=== PATIENT | male | born 1955 | race Caucasian/White ===

== ENCOUNTER 2016-11-29 13:29 | Observation (INO) | payer MEDICARE ==
--- NOTE | ~2016-11-29 | HEMODYNAMI ---
PATIENT:LINETTE MONTANEZ MEDICAL RECORD: [id number] : 55 [id number] ADMISSION DATE: 11/29/16 Generatedon:11/30/201611:28 Patient name: LINETTE MONTANEZ Patient #: [id number] SSN: D OB: 1955 Date of study: 11/30/2016 Page: Of Hemodynamic Procedure Report Patient Data Patient Demographics Procedure consent was obtained First Name: LINETTE Gender: Male Last Name: TARIK : 1955 [facility] Initial: ANTONIO Age: 61 year(s) Patient #: [id number] Race: Unknown Additional ID: [id number] Contact details [address]: [address] [place] [address] State: [place] City: [place] Zip code: [address] Past Medical History Allergies Allergen Reaction Date Comments Reported Aspirin 11/01/2015 Aspirin 11/30/2016 Admission Admission Data Admission Date: 11/29/2016 Admission Time: 16:45 Room #: D.2123 Weight (lbs.): 177.47 Weight (kg.): 80.5 Lab Results Lab Result Date: 11/30/2016 Lab Result Time: 0:00 Biochemistry Name Units Result Min Max BUN mg/dl 15 --(--*-)-- 7 18 Creatinine mg/dl 1 --(--*-)-- 0.6 1.3 CBC Name Units Result Min Max Hemoglobin g/dl 14.9 --(-*--)-- 13.5 17.5 Procedure Procedure Types Cath Procedure Diagnostic Procedure LHC LHC w/Coronaries Miscellaneous Procedures Moderate Sedation up to 30 minutes Procedure Description Procedure Date Procedure Date: 11/30/2016 Procedure Start Time: 11:12 Procedure End Time: 11:23 Procedure Staff Name Function Gilles Aldana MD Performing Physician Patricio Cobos RT Scrub Brittney Dobson RN Nurse Rony Jarrett RT Monitor Procedure Data Cath Procedure Fluoroscopy Diagnostic fluoroscopy Total fluoroscopy Time: 3.6 time: 3.6 min min Diagnostic fluoroscopy Total fluoroscopy dose: 644 dose: 644 mGy mGy Contrast Material Contrast Material Type Amount (ml) Isovue 300 70 Entry Location Entry Primary Successful Side Size Upsize Upsize Entry Closure Redd ccessful Closure Location (Fr) 1 (Fr) 2 (Fr) Remarks Device Remarks Radial Right 6 Fr Mechanical artery Short Compression Diagnostic catheters Device Type Used For End Catheter Placement Cordis RBL-A catheter (NO LV Angiography CHARGE) Terumo 5Fr [place] 110cm Left Coronary catheter Angiography Procedure Complications No complications Procedure Medications Medication Administration Route Dosage Oxygen NC 2 l/min Heparin Flush Bag added to field 2 bags (1000units/500ml NS) Lidocaine 2% added to field 20 Radial Cocktail added to field 1 syringe (Verapomil 2mg/Nitro 400mcg/Heparin 1500units) Versed I.V. 1 mg Fentanyl I.V. 50 mcg Versed I.V. 1 mg Fentanyl I.V. 50 mcg Radial Cocktail I.A. 1 syringe (Verapomil 2mg/Nitro 400mcg/Heparin 1500units) Hemodynamics Rest HGB: 14.9 (g/dl) Heart Rate: 55 (bpm) Pressure Samples Time Site Value (mmHg) Purpose Heart Use Rate(bpm) 11:15 LV 114/-1,12 EDP 66 Gradients Valve Time Site Site Mean SEP/DFP Peak To Heart Use 1 2 (mmHg) (sec/min) Peak Rate (mmHg) (bpm) Aortic 11:16 LV AO 90 Snapshots Pre Cath Intra NCS Post Cath Vital Signs Time Heart Resp SPO2 etCO2 [id number] NIBP (mmHg) Rhythm Pain Sedation Rate (ipm) (%) (mmHg) (mmHg) Status Level (bpm) 10:40:32 79 16 96 0 0 116/82(96) NSR 0 (11) 10(A) , No pain 10:44:38 56 15 96 0 0 134/81(104) SB 0 (11) 10(A) , No pain 10:48:52 59 15 95 0 0 119/74(91) SB 0 (11) 10(A) , No pain 10:53:02 55 16 96 0 0 114/74(91) SB 0 (11) 10(A) , No pain 10:57:14 51 16 95 0 0 119/63(82) SB 0 (11) 10(A) , No pain 11:01:26 55 16 95 0 0 104/70(81) SB 0 (11) 10(A) , No pain 11:05:32 57 16 95 0 0 109/66(82) SB 0 (11) 10(A) , No pain 11:09:41 55 16 95 0 0 110/62(83) SB 0 (11) 9(A) , No pain 11:14:38 58 16 95 0 0 104/58(75) SB 0 (11) 9(A) , No pain 11:18:46 61 16 95 0 0 103/63(83) SB 0 (11) 9(A) , No pain 11:22:52 56 16 96 0 0 107/65(83) SB 0 (11) 9(A) , No pain 11:25:07 55 16 95 0 0 91/62(76) SB 0 (11) 9(A) , No pain Medications Time Medication Route Dose Verified Delivered Reason Notes Effectiveness by by 10:48:35 Oxygen NC 2 l/min Gilles Brittney Per Jovan Dobson RN physician 10:48:54 Heparin Flush added 2 bags Gilles Gilles used for Bag to Jovan Aldana MD procedure (1000units/500ml field NS) 10:49:04 Lidocaine 2% added 20ml Gilles Gilles used for to vial Jovan Aldana MD procedure field 10:49:16 Radial Cocktail added 1 Gilles Gilles used for (Verapomil to syringe Jovan Aldana MD procedure 2mg/Nitro field 400mcg/Heparin 1500units) 11:06:59 Versed I.V. 1 mg Gilles Brittney for sedation Jovan Dobson RN 11:07:07 Fentanyl I.V. 50 mcg Gilles Brittney for sedation Jovan Dobson RN 11:09:11 Versed I.V. 1 mg Gilles Brittney for sedation Jovan Dobson RN 11:09:16 Fentanyl I.V. 50 mcg Gilles Brittney for sedation Jovan Dobson RN 11:14:08 Radial Cocktail I.A. 1 Gilles Gilles for (Verapomil syringe Jovan Aldana MD vasodilation 2mg/Nitro 400mcg/Heparin 1500units) Procedure Log Time Note 10:10:19 Patricio Cobos RT(R) sent for patient. Start room use. 10:20:52 Lab Result : BUN 15 mg/dl 10::52 Lab Result : Hemoglobin 14.9 g/dl 10::52 Lab Result : Creatinine 1 mg/dl 10:21:14 ACC Patient presents with Unstable Angina CCS Anginal Class 3--Marked limitation of physical activity, angina occurs with ordinary activity.. 10:21:16 Diagnostic Cath status Urgent 10::22 Time tracking: Regular hours 10::27 Plan of Care:Hemodynamics will remain stable., Cardiac rhythm will remain stable., Comfort level will be maintained., Respiratory function will remain adequate., Patient/ family verbilizes understanding of procedure., Procedure tolerated without complication., Recovers from procedure without complications.. 10:33:52 Patient received from PCU to CCL 1 Alert and oriented. Tansferred to table in Supine position. 10:33:55 Warm blankets applied, and franny hugger turned on for patient comfort. 10:33:55 Correct patient and procedure confirmed by team. 10:33:56 Signed procedure consent form obtained from patient. 10:33:57 ECG and BP/O2 sat monitors applied to patient. 10:39:28 Vital chart was started 10:43:24 Baseline sample Acquired. 10:43:27 Rhythm: sinus rhythm 10:43:28 Full Disclosure recording started 10:43:38 H&P Date Dictated: 11/29/2016 Within 30 days and on chart.. 10:43:39 Pre-procedure instructions explained to patient. 10:43:40 Pre-op teaching completed and patient verbalized understanding. 10:45:27 Family in patients room. 10:45:29 Patient NPO since Midnight. 10:45:36 Patient allergic to Aspirin 10:45:38 Is the patient allergic to Iodine/contrast media? No. 10:45:40 Is patient on blood thinner?No 10:45:54 Patient diabetic? No. 10:45:55 ----Pre-sedation anethsthesia assessment.---- 10:45:57 Previous problem with sedation/anesthesia? No ? 10:45:59 Snore? Yes 10:46:02 Sleep apnea? Yes 10:46:04 Deviated septum? No 10:46:06 Opens mouth fully? Yes 10:46:07 Sticks out tongue? Yes 10:46:13 Airway obstruction? Yes COPD 10:46:17 Dentures? No ? 10:46:20 Pre procedure: right dorsailis pedis pulse 1+ Palpable, but thready & weak; easily obliterated 10:46:22 Modified Michael's test Ulnar < 7 seconds 10:46:27 Patient pain scale 2/10 CP. 10:46:35 IV patent on arrival in left hand with 0.9% NaCl at 10ml/hr. 10:46:38 Lab results completed and on chart. 10:46:41 Right Radial & Right Groin area was prepped with chlora-prep and draped in sterile fashion 10:46:42 Alarms reviewed by R. N. 10:46:42 Sharps counted by scrub and verified by R.N. 10:46:57 Use device set Radial Dx 10:47:27 Acist Syringe opened to sterile field. 10:47:27 Medline Cath Pack opened to sterile field. 10:47:28 Bag Decanter opened to sterile field. 10:47:28 Terumo 6Fr Slender Glidesheath opened to sterile field. 10:47:29 St Myron 260cm J .035 wire opened to sterile field. 10:47:29 Acist Hand Control opened to sterile field. 10:47:30 Acist Manifold opened to sterile field. 10:47:30 Tegaderm 4 x 4 opened to sterile field. 10:47:30 MBrace Wrist Support opened to sterile field. 10:47:39 Cook 21G 4cm Radial Needle opened to sterile field. 10:48:35 Oxygen 2 l/min NC was administered by Brittney Dobson RN; Per physician; 10:48:54 Heparin Flush Bag (1000units/500ml NS) 2 bags added to field was administered by Gilles Aldana MD; used for procedure; 10:49:04 Lidocaine 2% 20ml vial added to field was administered by Gilles Aldana MD; used for procedure; 10:49:16 Radial Cocktail (Verapomil 2mg/Nitro 400mcg/Heparin 1500units) 1 syringe added to field was administered by Gilles Aldana MD; used for procedure; 10:57:48 Zero performed for pressure channel P1 10:57:51 Zero performed for pressure channel P1 10:57:54 Zero performed for pressure channel P1 11:00:06 Patient Weight : 177.47 kg 11:06:37 --------ALL STOP TIME OUT------ 11::38 Final Timeout: patient, procedure, and site verified with staff and physician. All members of the team are in agreement. 11:06:40 Right Radial & Right Groin site verified by team. 11:06:42 Physical assessment completed. ASA score P 2 - A patient with mild systemic disease as per Gilles Aldana MD. 11:06:46 Sedation plan: IV Moderate Sedation Versed, Fentanyl 11:06:59 Versed 1 mg I.V. was administered by Brittney Dobson RN; for sedation; 11::07 Fentanyl 50 mcg I.V. was administered by Brittney Dobson RN; for sedation; 11::11 Versed 1 mg I.V. was administered by Brittney Dobson RN; for sedation; 11::16 Fentanyl 50 mcg I.V. was administered by Brittney Dobson RN; for sedation; 11:11:15 Procedure started. 11:12:04 Local anesthetic to right radial artery with Lidocaine 2% by Gilles Aldana MD.INITIAL ACCESS ONLY 11:12:18 A 6 Fr Short sheath was inserted into the Right Radial artery 11:13:57 A TRAFFIQ RBL-A catheter (NO CHARGE) was advanced over the wire and used for LV Angiography. 11:14:02 LV angiography performed. 11:14:04 LV gram done using KAUR 11:14:05 LV hemodynamics recorded. 11:14:08 Radial Cocktail (Verapomil 2mg/Nitro 400mcg/Heparin 1500units) 1 syringe I.A. was administered by Gilles Aldana MD; for vasodilation; 11:14:14 Injector settings: Ml/sec: 7, Volume: 15, 11:15:38 EF : 60 % 11:17:17 RCA angiography performed. 11:19:35 Catheter removed. 11:19:46 A Terumo 5Fr [place] 110cm catheter was advanced over the wire and used for Left Coronary Angiography. 11:20:04 LCA angiography performed. 11:22:05 Catheter removed. 11:22:10 Terumo TR Band Standard opened to sterile field. 11:22:17 Contrast amount:Isovue 300 70ml. 11:22:23 Sheath removed intact; hemostasis achieved with Mechanical Compression to the Right Radial artery. 11:22:25 Procedure ended.(Physican Out) 11:22:35 Fluoroscopy time 03.60 minutes. 11:22:48 Flurop Dose total: 644 11:22:48 Fluoroscopy dose: 644 mGy 11:22:49 Sharps counted by scrub and verified by R.N. 11:22:51 TR band inflated with 10cc of air. 11:22:53 Insertion/operative site no bleeding no hematoma. 11:22:57 Post right radial artery:stable 11:23:01 Post procedure rhythm: sinus rhythm 11:23:03 Post procedure instruction explained to patient.Patient verbalizes understanding. 11:23:23 Procedure type changed to Cath procedure, Diagnostic procedure, LHC, LHC w/Coronaries, Miscellaneous Procedures, Moderate Sedation up to 30 minutes 11:23:27 Procedure and supply charges have been captured, reviewed, submitted and are correct. 11:23:30 Procedure Complication : No complications 11:23:32 Vital chart was stopped 11:23:33 See physician's report for complete and final results. 11:23:35 Report given to PCU. 11:23:43 Patient transfered to PCU with Bed. 11:23:45 Procedure ended. 11:23:45 Full Disclosure recording stopped 11:23:49 End room use (Document Last) Device Usage Item Name Manufacture Quantity Catalog Hospital Part Current Minimal Lot# / Number Charge Number Stock Stock Serial# Code Acist Acist 1 87428 [id number] [id number] 072735 20 Syringe Medical Systems Inc Medline Cardinal 1 [id number] 480646 75938 940826 5 Cath Pack Health Bag Microtek 1 2001S 563393 24312 102754 5 Decanter Medical Inc. Terumo 6Fr Terumo 1 [id number] 575618 023928 496274 [address] St Myron 1 557267 695044 405184 377501 30 260cm J .035 wire Acist Hand Acist 1 13173 536633 019326 276789 5 Control Medical Systems Inc Acist Acist 1 60159 495117 187485 622968 5 Manifold Medical Systems Inc Tegaderm 4 3M 1 1626W 100564 014814 160117 5 x 4 MBrace Advanced 1 140-0250-00 497127 32483 190369 5 Wrist Vascular Support Dynamics Cook 21G Cook Medical 1 [id number] 425783 288938 827368 5 4cm Radial Needle Cordis Cardinal 1 [id number] 165191 492878 5 RBL-A Health catheter (NO CHARGE) Terumo 5Fr Terumo 1 26-4125 067806 185550 843907 5 [place] 110cm catheter Terumo TR Terumo 1 [id number] 115270 467949 954117 40 Band Standard Signature Audit [place] Stage Time Signature Unsigned Intra-Procedure 11/30/2016 Rony Jarrett 11:28:20 AM RT(R) Signatures Monitor : Rony Jarrett RT Signature : Date : Time : [place] [id number] [place] [address]
[~2016-11-29 13:29] MED LIST: COMBIVENT INHALER INH; COUMADIN4 MG PO; DEPAKOTE500 MG PO; DILANTIN100 MG PO; FLOMAX0.4 MG PO; HYDROCODONE-APA1 TAB PO; IMODIUM A-D2 MG PO; IPRAT-ALBUT 0.5-3 ML UPD; LEVAQUIN750 MG PO; OMEPRAZOLE40 MG PO; PEPCID20 MG PO; SYNTHROID PO; SYNTHROID150 MCG PO; TOPAMAX100 MG PO
[2016-11-29 14:18] LABS: BASOPHILS 1.4 % (0.0-2.0); EOSINOPHILS 2.6 % (0-7); HEMATOCRIT 43.5 % (42.0-54.0); HEMOGLOBIN 14.9 g/dL (13.5-17.5); IMMATURE GRANULOCYTES 0.2 % (0-5); LYMPHOCYTES 29.2 % (15-50); MCH 33.5 pg (26.0-34.0); MCHC 34.3 g/dL (31.0-37.0); MCV 97.8 fL (80.0-100.0); MEAN PLATELET VOLUME 10.4 fL (7.4-10.4); NEUTROPHILS 59.6 % (40-80); PLATELET COUNT 102 10x3/uL (130-400); RBC 4.45 10x6/uL (4.20-6.10); RDW 14.3 % (11.5-14.5); WBC 4.3 10x3/uL (4.8-10.8)
[2016-11-29 14:44] LABS: ALBUMIN 3.6 g/dL (3.4-5.0); ALKALINE PHOSPHATASE 102 U/L (46-116); ALT (SGPT) 68 U/L (10-68); BILIRUBIN - TOTAL 0.58 mg/dL (0.2-1.3); CALC OSMOLALITY 281 mosm/kg (275-300); CALCIUM 8.8 mg/dL (8.5-10.1); CARBON DIOXIDE 28.9 mmol/L (21.0-32.0); CHLORIDE - SERUM 105 mmol/L (98-107); CREATININE - SERUM 1.1 mg/dL (0.6-1.3); GLUCOSE 131 mg/dL (74-106); POTASSIUM - SERUM 4.1 mmol/L (3.5-5.1); PROTEIN - SERUM 7.7 g/dL (6.4-8.2); SODIUM 140 mmol/L (136-145); UREA NITROGEN 15 mg/dL (7-18); eGFR NON AFRICAN AMERICAN 72 mL/min (90-120)
[2016-11-29 14:55] LABS: CHOL - HDL RATIO 5.2 ratio (2.3-4.9); CHOLESTEROL, TOTAL 213 mg/dL (0-200); CREATINE KINASE 240 UL (21-232); HDL CHOLESTEROL 41 mg/dL (32-96); LDL CHOLESTEROL 110 mg/dL (0-100); LDL-HDL RATIO 2.7 ratio (1.5-3.5); TRIGLYCERIDE 310 mg/dL (30-200)
[2016-11-29 14:56] LABS: TROPONIN-I < 0.017 ng/mL (0.000-0.060)
--- NOTE | 2016-11-29 17:20 | NUR ---
RECEIVED PT VIA W/C FROM ER IN STABLE CONDITION DENIES ANY PAIN AT THIS TIME TELEMETRY APPLIED SINUS LEYDA 59 RESP UNLABORED SKIN W/D COLOR WNL SALINE LOCK INTACT TO LAC WITHOUT REDNESS OR EDEMA OCCLUSIVE DRSG INTACT DR LOWE HERE TO SEE PT
[2016-11-29 17:33] VITALS: BP 123/78; BMI 31.6
[2016-11-29 18:16] LABS: CALC OSMOLALITY 280 mosm/kg (275-300); CALCIUM 9.1 mg/dL (8.5-10.1); CHLORIDE - SERUM 104 mmol/L (98-107); CREATINE KINASE 242 UL (21-232); GLUCOSE 116 mg/dL (74-106); SODIUM 140 mmol/L (136-145); UREA NITROGEN 15 mg/dL (7-18); eGFR NON AFRICAN AMERICAN 81 mL/min (90-120)
[2016-11-29 18:21] LABS: TROPONIN-I < 0.017 ng/mL (0.000-0.060)
[2016-11-29 20:00] VITALS: BP 109/73
--- NOTE | 2016-11-29 22:21 | NUR ---
INITAIL ROUNDS COMPETED AT 1914 HRS. PT DENIED AY DISCOMFORT PT HAD C/O CP 9/10 AT 1929 HRS. BP STABLE. NITRO 1/150 SL GIVEN. CP DOWN TO 2/10 WITHIN 5 MINUTES. ASSSESSMENT COMPLETED AT 1934 HRS. SR PER CM HR 62. VSS. O2 2LNC. LUNGS DIMINISHED IN BASES BILAT. ALERT AND ORIENTED TO PERSON, PLACE AND TIME. FORREST. NO CP WHEN ASSESSMENT COMPLETED. IV TO LAC INFILTRATED AT 2134 HRS. DC'D WITH CATHETER INTACT. NEW IV STARTED #20 TO L HADN WITH ATTEMPT X1. PT TOLERATED PROCEDURE WELL. PT CURRENTLY RESTING WITH EYES CLOSED. RESP EVEN AND REGULAR. SR UP X2, CALL LIGHT WITHIN REACH.
--- NOTE | 2016-11-29 23:12 | NUR ---
PT HAD C/O CPAT 2300 HRS 05/02. BP 110.75. NITRO 1/150 SL GIVEN. CP DOWN TO 2/10 WITHIN 5 MINUTES. POST NITRO BP 108/68. EKG DONE. WILL CONTINUE TO MONITOR.
--- NOTE | 2016-11-30 00:11 | NUR ---
PT RESTING WITH EYES CLOSED. RESP EVEN AND REGULAR. SR UP X2,CALL LIGHT WITHIN REACH.
[2016-11-30 01:51] LABS: CKMB 2.8 U/L (0.0-3.6); CREATINE KINASE 196 UL (21-232)
[2016-11-30 01:53] LABS: TROPONIN-I < 0.017 ng/mL (0.000-0.060)
[2016-11-30 02:00] VITALS: BP 103/56
--- NOTE | 2016-11-30 03:02 | NUR ---
PT RESTING WITH EYES CLOSED. RESP EVEN AND REGULAR. SR UP X2, CALL LIGHT WITHIN REACH.
[2016-11-30 04:00] VITALS: BP 115/58
--- NOTE | 2016-11-30 04:20 | NUR ---
PT RESTING WITH EYES CLOSED. RESP EVEN AAND REGULAR. SR UP X2, CALL LIGHT WITHIN REACH.
--- NOTE | 2016-11-30 06:12 | NUR ---
VSS THROUGHOUT NIGHT. SB PER CM. PT DENIES ANY DISCOMFORT AT THIS TIME. NEEDS MET; WILL CONTINUE TOMONITOR.
[2016-11-30 06:28] LABS: CKMB 2.5 U/L (0.0-3.6); CREATINE KINASE 179 UL (21-232); TROPONIN-I < 0.017 ng/mL (0.000-0.060)
--- NOTE | 2016-11-30 06:30 | NUR ---
PT HAS C/O CP 04/01. BP 119/80. NITRO 0.4MG SUBLINGUAL GIVEN.
--- NOTE | 2016-11-30 06:50 | NUR ---
PT STATES CP NOW 10/30. MINIMAL CHANGE IN BP. WILL CONTINUE TO MONITOR.
[2016-11-30 08:06] VITALS: BP 94/66
--- NOTE | 2016-11-30 09:59 | NUR ---
ALERT AND ORIENTED X4. RESTING IN BED. CONSENTS FOR STARS ANALYTICAL LEAD SIGNED ON CHART. SINUS LEYDA 54bpm ON TELEMETRY. PRE-OP COMPLETE BY STUDENT NURSE. CONTINUE PLAN OF CARE AND SAFETY PRECAUTIONS.
--- NOTE | 2016-11-30 10:21 | NUR ---
TAKEN TO TECHNICAL OPERATIONS MANAGER VIA BED. CONTINUE PLAN OF CARE AND SAFETY PRECAUTIONS.
--- NOTE | 2016-11-30 11:54 | NUR ---
ARRIVE BACK TO ROOM FROM INCOME TAX RETURN PREPARER VIA BED. SEDATED. AROUSES TO VOICE. FAMILY AT BEDSIDE. SINUS LEYDA 50bpm ON TELEMETRY. CLEAN CATH. RT WRIST TR BAND ON. PULSES +2 BILATERALLY. DENIES SOB OR PAIN. PLAN TO DC IN 2HRS. BP-85/52, R-12, T-97.5, O2-98% 2L NC. CONTINUE PLAN OF CARE. BED LOCKED AND LOW. CALL LIGHT IN REACH. TWO SIDERAILS UP.
[2016-11-30 12:00] VITALS: BP 85/59
--- NOTE | 2016-11-30 15:59 | NUR ---
ALERT AND ORIENTED X4. TR BAND COMPLETELY DEFLATED AT 1520. REMAIN FREE FROM BLEEDING. TR BAND REMOVED AND DRESSING PLACED. DISCHARGE INSTRUCTIONS GIVEN VERBALLY AND WRITTEN. DISCHARGE PAPERS SIGNED ON CHART. DC LT FA IV TIP INTACT. ESCORT TO RIDE VIA WHEELCHAIR. REMAINS FREE FROM INJURY.
--- NOTE | 2016-12-04 12:24 | OP ---
PATIENT NAME: LINETTE MONTANEZ MEDICAL RECORD: [id number] :55 LOCATION:D. D.2123 ADMISSION DATE:11/29/16 SURGEON: SONAM LOWE M.D. DATE OF OPERATION: 11/30/2016 PROCEDURES PERFORMED: 1. Selective coronary angiography. 2. Left heart catheterization with ventriculogram. INDICATION: A 61-year-old gentleman presents with symptoms of accelerating angina. EQUIPMENT USED: A 5-Malian [place] catheter. TECHNIQUE: A 5-Malian sheath was inserted in retrograde fashion in the right radial artery. Next, selective coronary angiography was performed in standard view using 5-Malian [place] catheter. Left heart catheterization used a [place] catheter as well. CORONARY ANATOMY: 1. Left main: Left main trunk is moderate in caliber. It gives rise to the LAD and circumflex. There is no obstruction. 2. LAD: This is a moderate caliber vessel extending to the apex. It has mild irregularities in the proximal segment nothing worse than 20%. 3. Circumflex: This vessel is small in caliber. A smooth-walled vessel and angiographically normal. 4. Right coronary: This vessel is quite large and dominant. It supplies the PDA and posterolateral branch in distal segment. This vessel is smooth-walled and angiographically normal. 5. Left ventricle: Left ventricle is normal in size and function. No wall motion abnormalities are noted. Estimated ejection fraction is 55%. IMPRESSION: 1. Essentially normal coronary arteries. 2. Normal left ventricular function. RECOMMENDATIONS: I suspect his chest pain is noncardiac in origin. TRANSINT:[id number] Voice Confirmation ID: [id number] DOCUMENT ID: [id number] SONAM LOWE M.D. at 1224 CC: [id number] DICTATION DATE: 11/30/16 1126 CRANE SERVICE TECHNICIAN: 11/30/16 1512 DIS IN 11/30/[address] [address]
== END 2016-11-30 16:05 | disposition home or self-care (01) ==
LOC: D.ER 13:29 → D.M2 16:45
PROVIDERS: Emergency Medicine; ADMIT Internal Medicine Cardiovascular Disease
DX: R07.89 Other chest pain (principal); J44.1 Chronic obstructive pulmonary disease with (acute) exacerbation; Z72.0 Tobacco use

== ENCOUNTER 2017-03-13 13:29 | Emergency (ER) | payer MEDICARE ==
[2017-03-13 14:00] LABS: BASOPHILS 0.5 % (0-2); EOSINOPHILS 1.8 % (0-7); HEMATOCRIT 45.4 % (42.0-54.0); HEMOGLOBIN 15.5 g/dL (13.5-17.5); IMMATURE GRANULOCYTES 0.4 % (0-5); MCH 33.3 pg (26.0-34.0); MCHC 34.1 g/dL (31.0-37.0); MCV 97.4 fL (80.0-100.0); MEAN PLATELET VOLUME 10.1 fL (7.4-10.4); MONOCYTES 9.5 % (2-11); NEUTROPHILS 65.8 % (40-80); PLATELET COUNT 110 10x3/uL (130-400); RBC 4.66 10x6/uL (4.20-6.10); RDW 13.2 % (11.5-14.5); WBC 5.7 10x3/uL (4.8-10.8)
[2017-03-13 14:15] LABS: ALBUMIN 3.8 g/dL (3.4-5.0); ALKALINE PHOSPHATASE 95 U/L (46-116); ALT (SGPT) 76 U/L (10-68); BILIRUBIN - TOTAL 0.68 mg/dL (0.2-1.3); CALC OSMOLALITY 280 mosm/kg (275-300); CALCIUM 9.4 mg/dL (8.5-10.1); CARBON DIOXIDE 29.1 mmol/L (21.0-32.0); CHLORIDE - SERUM 102 mmol/L (98-107); CREATININE - SERUM 0.8 mg/dL (0.6-1.3); GLUCOSE 157 mg/dL (74-106); POTASSIUM - SERUM 4.1 mmol/L (3.5-5.1); PROTEIN - SERUM 7.9 g/dL (6.4-8.2); SODIUM 138 mmol/L (136-145); UREA NITROGEN 17 mg/dL (7-18); eGFR NON AFRICAN AMERICAN > 90 mL/min (90-120)
[2017-03-13 14:25] LABS: CHOL - HDL RATIO 3.1 ratio (2.3-4.9); CHOLESTEROL, TOTAL 188 mg/dL (0-200); CKMB 1.6 U/L (0.0-3.6); CREATINE KINASE 73 UL (21-232); HDL CHOLESTEROL 61 mg/dL (32-96); LDL CHOLESTEROL 105 mg/dL (0-100); LDL-HDL RATIO 1.7 ratio (1.5-3.5); TRIGLYCERIDE 111 mg/dL (30-200)
[2017-03-13 14:38] LABS: TROPONIN-I < 0.017 ng/mL (0.000-0.060)
== END 2017-03-13 16:58 | disposition home or self-care (01) ==
LOC: D.ER 13:29
PROVIDERS: Emergency Medicine
DX: R07.9 Chest pain, unspecified (principal); M75.92 Shoulder lesion, unspecified, left shoulder; M25.512 Pain in left shoulder; K21.9 Gastro-esophageal reflux disease without esophagitis; F17.200 Nicotine dependence, unspecified, uncomplicated; R00.1 Bradycardia, unspecified

== ENCOUNTER 2017-04-12 12:47 | Observation (INO) | payer MEDICARE ==
[~2017-04-12] VITALS: Ht 162.6 cm; Wt 80.6 kg
[2017-04-12 13:55] VITALS: BP 119/71; Ht 162.6 cm; Wt 80.6 kg
--- NOTE | 2017-04-12 14:14 | NUR ---
PT ADMITTED FROM DR. COLMENARES. ARRIVED VIA . WARM BLANKETS GIVEN. TEMP IS 103.1. DR. NORTH CONTACTED AND ORDERS RECIEVED. BLOOD CULTURES TO BE DRAWN. SEE ASSESMENT FOR FURTHER EVAL. WHEEZING UPON EXPIRATION. NO O2 @ PRESENT.
[2017-04-12 14:40] LABS: BASOPHILS 0.1 % (0-2); EOSINOPHILS 0 % (0-7); HEMATOCRIT 45.3 % (42.0-54.0); HEMOGLOBIN 15.4 g/dL (13.5-17.5); IMMATURE GRANULOCYTES 0.3 % (0-5); LYMPHOCYTES 7.3 % (15-50); MCH 33.3 pg (26.0-34.0); MCV 97.8 fL (80.0-100.0); MEAN PLATELET VOLUME 10.3 fL (7.4-10.4); MONOCYTES 5.9 % (2-11); NEUTROPHILS 86.4 % (40-80); RBC 4.63 10x6/uL (4.20-6.10); RDW 13.5 % (11.5-14.5); WBC 9.6 10x3/uL (4.8-10.8)
[2017-04-12 14:58] LABS: ANION GAP 11.6 mmol/L (8-16); CALCIUM 8.7 mg/dL (8.5-10.1); CARBON DIOXIDE 28.3 mmol/L (21.0-32.0); CREATININE - SERUM 1.1 mg/dL (0.6-1.3); POTASSIUM - SERUM 3.9 mmol/L (3.5-5.1)
[2017-04-12 15:48] LABS: PLATELET COUNT 81 10x3/uL (130-400)
[2017-04-12 15:49] LABS: PLATELET ESTIMATE DECREASED
--- NOTE | 2017-04-12 17:11 | NUR ---
FSBS 235 HUMALOG 4 UNITS GIVEN SQ LT ARM
[2017-04-12 19:00] VITALS: BP 129/70
--- NOTE | 2017-04-12 19:53 | NUR ---
RESTING QUIETLY. CO PAIN BUT NOT TIME FOR MEDS. WILL CONTINUE TO MONITOR.
[2017-04-13 04:00] VITALS: BP 104/67
[2017-04-13 06:36] LABS: BASOPHILS 0.1 % (0-2); EOSINOPHILS 0 % (0-7); HEMOGLOBIN 14.9 g/dL (13.5-17.5); IMMATURE GRANULOCYTES 0.1 % (0-5); LYMPHOCYTES 3.1 % (15-50); MCH 33.3 pg (26.0-34.0); MCHC 34.7 g/dL (31.0-37.0); MEAN PLATELET VOLUME 10.7 fL (7.4-10.4); MONOCYTES 1.2 % (2-11); NEUTROPHILS 95.5 % (40-80); PLATELET COUNT 84 10x3/uL (130-400); RBC 4.48 10x6/uL (4.20-6.10); RDW 13.5 % (11.5-14.5); WBC 8.9 10x3/uL (4.8-10.8)
[2017-04-13 06:51] LABS: ALBUMIN 2.6 g/dL (3.4-5.0); ANION GAP 17.4 mmol/L (8-16); BILIRUBIN - TOTAL 0.6 mg/dL (0.2-1.3); CALCIUM 8.8 mg/dL (8.5-10.1); CARBON DIOXIDE 20.2 mmol/L (21.0-32.0); CREATININE - SERUM 1.2 mg/dL (0.6-1.3); POTASSIUM - SERUM 3.6 mmol/L (3.5-5.1); PROTEIN - SERUM 7.6 g/dL (6.4-8.2)
--- NOTE | 2017-04-13 07:00 | NUR ---
REPORT RECEIVED FROM OFF GOING NURSE. PT ALERT AND ORIENTED X4. VERY TALKATIVE. REDDNESS NOTED TO LEFT AXILLA. PT ODIFEROUS. STATED HE HASNT HAD A SHOWER IN A FEW DAYS. HAS A LEFST WRIST PIV THAT KEEPS OCCLUDING BUT PT HAS BEEN KEEING HIS HAD BENT. DRESSING C/D/I. 75ML OF NS TO LEFT WRIST. RLL DEMINISHED LUNG SOUNDS AND THE OTHERS CLEAR. 0 NEEDS VOICED AT THIS TIME. 0 S/SX OF DISTRESS/DISCOMFORT NOTED. BREATHING NORMAL AND UNLABORED. CALL LIGHT IN REACH. WILL CONT POC
[2017-04-13 08:18] VITALS: BP 95/62
--- NOTE | 2017-04-13 11:00 | NUR ---
LEFT WRIST IV KEEPS OCCLUDING. X2 ATTEMPTS AT STARTING A NEW IV WITH NO SUCCESS. ARCELIA SHI.
[2017-04-13 12:23] VITALS: BP 117/77
--- NOTE | 2017-04-13 15:09 | NUR ---
URINE SAMPLE COLLECTED. CLEAR AND YELLOW. SENT TO LAB.
[2017-04-13 15:27] LABS: APPEARANCE CLEAR (CLEAR); BILIRUBIN NEGATIVE (NEGATIVE); COLOR DK YELLOW (YELLOW); GLUCOSE 1000 mg/dL (NEGATIVE); KETONE NEGATIVE (NEGATIVE); LEUKOCYTE ESTERASE NEGATIVE (NEGATIVE); NITRITE NEGATIVE (NEGATIVE); PROTEIN TRACE mg/dL (NEGATIVE); UROBILINOGEN NORMAL (NORMAL)
[2017-04-13 15:29] LABS: WHITE CELLS - URINE OCC /hpf (0-5)
[2017-04-13 15:31] LABS: BACTERIA FEW /hpf (NONE SEEN)
[2017-04-13 15:37] LABS: HEMOGLOBIN A1C 8.1 % (4.8-6.0)
[2017-04-13 17:06] VITALS: BP 103/62
--- NOTE | 2017-04-13 19:19 | NUR ---
REPORT GIVEN TO ON COMING NURSE
--- NOTE | 2017-04-13 19:42 | NUR ---
PT IN BED ATTENTION FOCUSED TOWARDS TELEVISION DENIES NEEDS AT THIS TIME WILL CONTINUE TO MONITOR
[2017-04-13 20:00] VITALS: BP 104/59
[2017-04-14 04:00] VITALS: BP 96/51
--- NOTE | 2017-04-14 04:10 | NUR ---
REMOVED NONPATENT IV TO LEFT HAND. PT NOW HAS BANANA BAG AT 125ML/HR INFUSING TO LFA. PT ALERT/ORIENTED AND VOICING ON C/O.
[2017-04-14 04:24] LABS: BASOPHILS 0.1 % (0-2); EOSINOPHILS 0 % (0-7); HEMATOCRIT 38.9 % (42.0-54.0); HEMOGLOBIN 13.4 g/dL (13.5-17.5); IMMATURE GRANULOCYTES 0.5 % (0-5); LYMPHOCYTES 4.9 % (15-50); MCH 32.9 pg (26.0-34.0); MCHC 34.4 g/dL (31.0-37.0); MCV 95.6 fL (80.0-100.0); MEAN PLATELET VOLUME 11.1 fL (7.4-10.4); MONOCYTES 4.8 % (2-11); NEUTROPHILS 89.7 % (40-80); PLATELET COUNT 98 10x3/uL (130-400); RBC 4.07 10x6/uL (4.20-6.10); RDW 13.3 % (11.5-14.5)
[2017-04-14 04:32] LABS: WBC 11.8 10x3/uL (4.8-10.8)
[2017-04-14 04:52] LABS: ALBUMIN 2.5 g/dL (3.4-5.0); ANION GAP 14.2 mmol/L (8-16); BILIRUBIN - TOTAL 0.28 mg/dL (0.2-1.3); CALCIUM 8.5 mg/dL (8.5-10.1); CARBON DIOXIDE 24.2 mmol/L (21.0-32.0); CREATININE - SERUM 1.2 mg/dL (0.6-1.3); POTASSIUM - SERUM 3.4 mmol/L (3.5-5.1); PROTEIN - SERUM 7.1 g/dL (6.4-8.2)
--- NOTE | 2017-04-14 07:00 | NUR ---
REPORT RECEIVED FROM ON COMING NURSE. PT DENIES PAIN. BREATHING NORMAL AND UNLABORED. HAS A L WRIST IV AND A BANANAS AT 125. 0 NEEDS VOICED AT THIS TIME. CALL LIGHT IN REACH.
[2017-04-14 09:00] VITALS: BP 114/58
--- NOTE | 2017-04-14 12:00 | NUR ---
NO ACUTE CHANGES AT THIS TIME. BREATHING NORMAL AND UNLABORD. AGATHA PAIN. CALL LIGHT IN REACH. WILL CONT POC
--- NOTE | 2017-04-14 14:03 | CN ---
PATIENT NAME:LINETTE GUILLEN MEDICAL RECORD: [id number] : 55 LOCATION:D. D.2122 ADMIT DATE: 04/12/17 ACCOUNT: [id number] CONSULTING PHYSICIAN: SHADIA COLIN MD REFERRING PHYSICIAN: SOILA ZIMMERMAN MD DATE OF CONSULTATION: 04/12/2017 CONSULT REQUESTING PHYSICIAN: John Ferreira MD REASON FOR CONSULTATION: Pneumonia, acute exacerbation of chronic obstructive pulmonary disease. HISTORY OF PRESENT ILLNESS: Mr. Guillen is a 61-year-old gentleman who has a history of chronic smoking, the patient for the last 2-3 days, he is not feeling well. He is very sleepy, but lethargic. He has a fever of 100.6. He is also has chills. He is coughing with very little sputum production. He also having a night sweats. There are no associated nausea, vomiting, no diarrhea. The patient was seen in Dr. Zimmerman's office today and directly admitted for questionable pneumonia. REVIEW OF SYSTEMS: Mainly in the history of present illness. PAST MEDICAL HISTORY: 1. COPD. 2. History of DVT in April 2009. 3. Obstructive sleep apnea, on CPAP. 4. BPH. 5. Hypothyroidism. 6. Seizure disorder. 7. History of throat cancer, status post chemoradiation therapy. 8. Esophageal cancer. PAST SURGICAL HISTORY: 1. Cholecystectomy. 2. IVC filter placement. 3. Gastric pull-through surgery for esophageal carcinoma. 4. Abdominal surgery from PEG tube removed. ALLERGIES: HE IS ALLERGIC TO LATEX, NATURAL RUBBER AND ASPIRIN. PRESENT MEDICATIONS: On [employer] was reviewed. PERSONAL AND SOCIAL HISTORY: The patient still everyday smoker. He is also a drinker, approximately 14 times per week. FAMILY HISTORY: Noncontributory. PHYSICAL EXAMINATION: GENERAL: Now, the patient is lying comfortably in bed. He is not in acute distress. VITAL SIGNS: The blood pressure is 109/71, pulse is 94, respirations 20, temperature 103.1, SpO2 is 95% on room air. HEENT: Conjunctivae pink, sclerae nonicteric. NECK: Supple, no JVD. CHEST: Excursion is minimal on both sides. Wheeze on forceful expiration. CONSULT REPORT [id number] LINETTE GUILLEN There are crackles at the left base. HEART: Rhythm regular, normal sound, no murmur. ABDOMEN: Soft, bowel sounds present. No hepatosplenomegaly. RECTAL: Deferred. EXTREMITIES: No cyanosis, no clubbing, no pedal edema. SKIN: Warm, normal turgor. CENTRAL NERVOUS SYSTEM: The patient is awake and alert. There is no obvious cranial nerve abnormality. The gait was not tested. CHEST RADIOGRAPH: There is infiltrate in the left lower lobe. OTHER LABORATORY DATA: CBC: The WBC is 9.6, hemoglobin 15.4, hematocrit 45.3, platelet count is 81. Chemistry: Sodium 132, potassium 3.9, BUN is 14, creatinine 1.1, glucose 192. IMPRESSION: 1. Acute exacerbation of chronic obstructive pulmonary disease. 2. Pneumonia, left lower lobe. 3. Tobacco dependence syndrome. 4. Diabetes mellitus type 2. 5. Obstructive sleep apnea on CPAP. RECOMMENDATION: 1. Continue Levaquin. I will add Rocephin and start on methylprednisolone IV. Start him on Brovana, budesonide nebulizer, albuterol/ipratropium nebulizer. 2. Mucinex. 3. Follow up labs and chest radiograph in the morning. Dr. Ferreira thank you for involving me in the care of Mr. Guillen. TRANSINT:[id number] Voice Confirmation ID: [id number] DOCUMENT ID: [id number] SHADIA COLIN MD at 1403 CC: SOILA ZIMMERMAN MD [id number] DICTATION DATE: 04/12/171815 ROLLED MATERIALS WORKER: 04/12/172046 ADM IN [place] [id number] [place] [id number]
[2017-04-14 16:00] VITALS: BP 106/63
[2017-04-14 19:00] VITALS: BP 85/44
--- NOTE | 2017-04-14 19:45 | NUR ---
INTRODUCED MYSELF TO PT PRIMARY RN FOR [facility]. PT A&O SITTING ON SIDE OF BED VISITING WITH FAMILY. PT DENIES ANY CURRENT PAIN OR NEEDS AT THIS TIME. CL IN REACH, BED IN LOWEST, SIDE RAILS X2. WILL CPOC.
--- NOTE | 2017-04-14 20:58 | NUR ---
NIGHTLY MEDICATIONS GIVEN. PROVIDED PT WITH PRN PAIN MEDICATION FOR TOOTHACHE ALONG WITH PRN MELATONIN FOR INSOMNIA. FSBS 180 PROVIDED PT WITH 4UNITS PER SS. PT REFUSED BEDTIME SNACK AND STATED HE JUST WANTED TO SLEEP. RR NONLABORED ON RA. LUNGS CTA. PT HAS A L.WRIST PIV WITH BANANA BAG @125ML/HR INFUSING. DRSG CDI AND SWAB CAPS IN USE. WE NEED A URINE SPECIMEN ON PT I EXPLAINED HOW TO GET A CLEAN CATCH AND PT VERBALIZED UNDERSTANDING AND WILL PROVIDE WHEN AVAILABLE. PT RESTING IN BED WATCHING TV AND DENIES ANY FURTHER NEEDS AT THIS TIME. CL IN REACH, BED IN LOWEST, SIDE RAILS X2. WILL CPOC.
--- NOTE | 2017-04-15 02:32 | NUR ---
PT CALLED REQUESTING PRN PAIN MED TO HELP. PTS MED IS ONLY BIDPRN. EXPLAINED TO PT AND TURNED ON TV TO HELP DISTRACT HIM AND REPOSITIONED HIM IN BED. PT VOICED THANKS AND DENIES ANY FURTHER NEEDS AT THIS TIME. CL IN REACH, BED IN LOWEST, SIDE RAILS X2. WILL CPOC.
[2017-04-15 04:00] VITALS: BP 82/48
--- NOTE | 2017-04-15 05:35 | NUR ---
URINE SPECIMEN COLLECTED AND SENT TO LAB.
[2017-04-15 06:02] LABS: BASOPHILS 0 % (0-2); EOSINOPHILS 0 % (0-7); HEMATOCRIT 36.3 % (42.0-54.0); HEMOGLOBIN 12.4 g/dL (13.5-17.5); IMMATURE GRANULOCYTES 0.3 % (0-5); LYMPHOCYTES 5.7 % (15-50); MCH 32.8 pg (26.0-34.0); MCHC 34.2 g/dL (31.0-37.0); MEAN PLATELET VOLUME 10.8 fL (7.4-10.4); MONOCYTES 4.5 % (2-11); NEUTROPHILS 89.5 % (40-80); PLATELET COUNT 99 10x3/uL (130-400); RBC 3.78 10x6/uL (4.20-6.10); RDW 13.9 % (11.5-14.5); WBC 9.4 10x3/uL (4.8-10.8)
[2017-04-15 06:23] LABS: UDS - AMPHET NEGATIVE QUAL (NEGATIVE); UDS - BARB NEGATIVE QUAL (NEGATIVE); UDS - BENZO NEGATIVE QUAL (NEGATIVE); UDS - COCAINE NEGATIVE QUAL (NEGATIVE); UDS - METH NEGATIVE QUAL (NEGATIVE); UDS - OPIATE POSITIVE QUAL (NEGATIVE); UDS - PCP NEGATIVE QUAL (NEGATIVE); UDS - THC NEGATIVE QUAL (NEGATIVE)
[2017-04-15 06:36] LABS: ALBUMIN 2.3 g/dL (3.4-5.0); ALKALINE PHOSPHATASE 90 U/L (46-116); ALT (SGPT) 53 U/L (10-68); CALC OSMOLALITY 290 mosm/kg (275-300); CALCIUM 8.2 mg/dL (8.5-10.1); CARBON DIOXIDE 24.6 mmol/L (21.0-32.0); CHLORIDE - SERUM 106 mmol/L (98-107); GLUCOSE 282 mg/dL (74-106); POTASSIUM - SERUM 3.9 mmol/L (3.5-5.1); PROTEIN - SERUM 6.3 g/dL (6.4-8.2); SODIUM 138 mmol/L (136-145); UREA NITROGEN 27 mg/dL (7-18); eGFR NON AFRICAN AMERICAN 81 mL/min (90-120)
[2017-04-15 08:00] VITALS: BP 99/57
--- NOTE | 2017-04-15 08:04 | NUR ---
ASSESSMENT DONE. DENIES NEEDS.
--- NOTE | 2017-04-15 10:07 | NUR ---
UP TO CHAIR. CALL LIGHT IN REACH. IV PATENT. WILL MONITOR NEEDS.
[2017-04-15 12:00] VITALS: BP 93/51
[2017-04-15 15:32] VITALS: BP 107/60
--- NOTE | 2017-04-15 17:53 | NUR ---
WITHOUT CHANGES OR DISTRESS NOTED AT THIS TIME. DENIES NEEDS.
[2017-04-15 19:00] VITALS: BP 100/62
--- NOTE | 2017-04-15 20:00 | NUR ---
SHIFT ASSESSMENT COMPLETE AT THIS TIME. PT IS A&O X4 AND HE IS IN GOOD SPIRITS. RADIAL AND PEDAL PULSES PALP AND REGULAR. HE DOES COMPLAIN OF ARM PAIN THAT IS LOCALIZED IN HIS ARMPIT. ADMINISTERED PRN PAIN MEDS AND APPLIED LOTION PER REQUEST TO HIS ARMPIT. SCAR NOTED ON HIS ABD AND HE STATES THAT IT IS FROM HIS HX OF CANCER. PT IS ON ROOM AIR AND IS SHOWING NO S/S OF DISTRESS AT THIS TIME. L WRIST PIV INFUSING BANANA BAG @ 125 ML/HR. HE IS UP ADLIB WITH NO PROBLEMS NOTED. BLOOD SUGAR READS 176, ADMIN 4 UN INSULIN PER SLIDING SCALE. HE DOES REQUEST HIS NIGHT TIME SLEEPING AID. ADMINISTERED PER REQUEST. HE DENIES ANY OTHER NEEDS AT THIS TIME. WILL CONT TO MONITOR.
--- NOTE | 2017-04-15 23:00 | NUR ---
PT RESTING AT THIS TIME WITH NO S/S OF DISTRESS. WILL CONT TO MONITOR.
[2017-04-16] VITALS: BP 94/52
--- NOTE | 2017-04-16 04:56 | NUR ---
PT WOKE UP TO INTENSE PAIN IN HIS L ARM. HE STATES THAT IT IS A 10/. REPOSITONED FOR COMFORT AND ADMINISTERED PRN PAIN MEDICATION. PT IS A&O WITH NO FURTHER SIGNS OF DISTRESS. CALL LIGHT IN REACH. BED IN LOWEST POSITION. WILL CONT WITH POC.
[2017-04-16 05:54] LABS: BASOPHILS 0.1 % (0-2); EOSINOPHILS 0 % (0-7); HEMATOCRIT 35.4 % (42.0-54.0); IMMATURE GRANULOCYTES 1.6 % (0-5); LYMPHOCYTES 8.6 % (15-50); MCH 32.7 pg (26.0-34.0); MCHC 33.9 g/dL (31.0-37.0); MCV 96.5 fL (80.0-100.0); MEAN PLATELET VOLUME 10.5 fL (7.4-10.4); MONOCYTES 5.1 % (2-11); NEUTROPHILS 84.6 % (40-80); PLATELET COUNT 100 10x3/uL (130-400); RBC 3.67 10x6/uL (4.20-6.10); WBC 10.1 10x3/uL (4.8-10.8)
[2017-04-16 06:34] LABS: ALBUMIN 2.2 g/dL (3.4-5.0); ALKALINE PHOSPHATASE 90 U/L (46-116); ALT (SGPT) 58 U/L (10-68); BILIRUBIN - TOTAL 0.24 mg/dL (0.2-1.3); CALC OSMOLALITY 283 mosm/kg (275-300); CALCIUM 7.7 mg/dL (8.5-10.1); CARBON DIOXIDE 20.4 mmol/L (21.0-32.0); CHLORIDE - SERUM 106 mmol/L (98-107); GLUCOSE 257 mg/dL (74-106); POTASSIUM - SERUM 4.2 mmol/L (3.5-5.1); PROTEIN - SERUM 5.9 g/dL (6.4-8.2); SODIUM 136 mmol/L (136-145); UREA NITROGEN 22 mg/dL (7-18); eGFR NON AFRICAN AMERICAN 81 mL/min (90-120)
[2017-04-16 08:00] VITALS: BP 92/54
--- NOTE | 2017-04-16 08:06 | NUR ---
ASSESSMENT DONE. DENIES NEEDS.
--- NOTE | 2017-04-16 09:57 | NUR ---
RESTS WITH EYES CLOSED. IV PATENT. CALL LIGHT IN REACH. WILL CONT. PLAN OF CARE.
[2017-04-16] MEDS ORDERED: MUCINEX600 MG PO (10:55)
[2017-04-16] MEDS ORDERED: TESSALON PERLE100 MG PO (10:55)
[2017-04-16] MEDS ORDERED: FLORAJEN3 CAPS460 MG PO (10:55)
[2017-04-16] MEDS ORDERED: SPECTAZOLE 1 %15 GM TOPICAL (10:57)
[2017-04-16] MEDS ORDERED: LEVAQUIN750 MG PO (10:59)
[2017-04-16] MEDS ORDERED: PREDNISONE10 MG PO (10:59)
[2017-04-16 12:25] VITALS: BP 97/57
--- NOTE | 2017-04-16 13:58 | NUR ---
DC AND RX GIVEN TO PT
--- NOTE | 2017-04-16 14:53 | NUR ---
DC HOME PER PERSONAL CAR
== END 2017-04-16 14:54 | disposition home or self-care (01) ==
LOC: D.SDCHOLD 12:47 → D.M2 12:47 → OBSVTIME 12:47 → D.M2 13:02 → D.SDCHOLD 04-15 21:16 → D.M2 04-15 21:18
PROVIDERS: Family Medicine; ADMIT Family Medicine
DX: J44.0 Chronic obstructive pulmonary disease with (acute) lower respiratory infection (principal); J44.1 Chronic obstructive pulmonary disease with (acute) exacerbation; J18.9 Pneumonia, unspecified organism; F17.203 Nicotine dependence unspecified, with withdrawal; Z86.718 Personal history of other venous thrombosis and embolism; R51 Headache; G47.00 Insomnia, unspecified; G47.33 Obstructive sleep apnea (adult) (pediatric); R21 Rash and other nonspecific skin eruption; E03.9 Hypothyroidism, unspecified; E11.9 Type 2 diabetes mellitus without complications; F10.20 Alcohol dependence, uncomplicated; G40.909 Epilepsy, unspecified, not intractable, without status epilepticus; N40.0 Benign prostatic hyperplasia without lower urinary tract symptoms

== ENCOUNTER 2017-05-02 18:30 | Emergency (ER) | payer MEDICARE ==
[2017-04-12 13:55] VITALS: BMI 28.9
[~2017-05-02 18:30] MED LIST changes: +FLORAJEN3 CAPS460 MG PO; +MUCINEX600 MG PO; +PREDNISONE10 MG PO; +SPECTAZOLE 1 %15 GM TOPICAL; +TESSALON PERLE100 MG PO
[2017-05-02 20:27] LABS: BASOPHILS 0.4 % (0-2); HEMATOCRIT 42.3 % (42.0-54.0); IMMATURE GRANULOCYTES 0.6 % (0-5); LYMPHOCYTES 29.4 % (15-50); MCH 33.3 pg (26.0-34.0); MCHC 33.1 g/dL (31.0-37.0); MCV 100.5 fL (80.0-100.0); MEAN PLATELET VOLUME 10.1 fL (7.4-10.4); MONOCYTES 9.1 % (2-11); NEUTROPHILS 57.5 % (40-80); PLATELET COUNT 114 10x3/uL (130-400); RBC 4.21 10x6/uL (4.20-6.10); RDW 14.5 % (11.5-14.5); WBC 4.7 10x3/uL (4.8-10.8)
[2017-05-02 20:45] LABS: ALBUMIN 3.3 g/dL (3.4-5.0); ALKALINE PHOSPHATASE 136 U/L (46-116); ALT (SGPT) 55 U/L (10-68); BILIRUBIN - TOTAL 0.62 mg/dL (0.2-1.3); CALC OSMOLALITY 281 mosm/kg (275-300); CALCIUM 9.2 mg/dL (8.5-10.1); CARBON DIOXIDE 27.2 mmol/L (21.0-32.0); CHLORIDE - SERUM 106 mmol/L (98-107); CREATININE - SERUM 0.8 mg/dL (0.6-1.3); POTASSIUM - SERUM 3.5 mmol/L (3.5-5.1); PROTEIN - SERUM 7.3 g/dL (6.4-8.2); SODIUM 141 mmol/L (136-145); UREA NITROGEN 11 mg/dL (7-18); eGFR NON AFRICAN AMERICAN > 90 mL/min (90-120)
[2017-05-02 20:48] LABS: GLUCOSE 129 mg/dL (74-106)
== END 2017-05-02 21:31 | disposition home or self-care (01) ==
LOC: D.ER 18:30
PROVIDERS: Physician Assistant
DX: R53.81 Other malaise (principal); Z87.01 Personal history of pneumonia (recurrent); M25.512 Pain in left shoulder; Z85.01 Personal history of malignant neoplasm of esophagus; K21.9 Gastro-esophageal reflux disease without esophagitis; I10 Essential (primary) hypertension; F17.200 Nicotine dependence, unspecified, uncomplicated

== ENCOUNTER 2017-07-10 14:34 | Emergency (ER) | payer MEDICARE ==
[2017-04-12 13:55] VITALS: BMI 28.9
== END 2017-07-10 16:30 | disposition home or self-care (01) ==
LOC: D.ER 14:34
DX: M54.12 Radiculopathy, cervical region (principal); M19.91 Primary osteoarthritis, unspecified site; Z85.01 Personal history of malignant neoplasm of esophagus; I10 Essential (primary) hypertension; F17.200 Nicotine dependence, unspecified, uncomplicated

== ENCOUNTER → 2017-07-26 13:11 | Outpatient (CLI) | payer MEDICARE ==
[2017-04-12 13:55] VITALS: BMI 28.9
== END | disposition home or self-care (01) ==
LOC: D.MRI 13:11
DX: M50.10 Cervical disc disorder with radiculopathy, unspecified cervical region (principal); M54.12 Radiculopathy, cervical region

== ENCOUNTER 2017-08-03 06:18 | Inpatient (IN) | payer MEDICARE ==
[2017-08-02 15:51] LABS: BASOPHILS 0.8 % (0-2); EOSINOPHILS 3.2 % (0-7); HEMOGLOBIN 15.1 g/dL (13.5-17.5); IMMATURE GRANULOCYTES 0.2 % (0-5); MCH 33.7 pg (26.0-34.0); MCHC 34.3 g/dL (31.0-37.0); MCV 98.2 fL (80.0-100.0); MEAN PLATELET VOLUME 9.9 fL (7.4-10.4); MONOCYTES 9.3 % (2-11); NEUTROPHILS 61.5 % (40-80); PLATELET COUNT 120 10x3/uL (130-400); RBC 4.48 10x6/uL (4.20-6.10); RDW 13.4 % (11.5-14.5); WBC 5.3 10x3/uL (4.8-10.8)
[2017-08-02 16:11] LABS: CALC OSMOLALITY 280 mosm/kg (275-300); CALCIUM 8.9 mg/dL (8.5-10.1); CHLORIDE - SERUM 102 mmol/L (98-107); GLUCOSE 128 mg/dL (74-106); POTASSIUM - SERUM 3.9 mmol/L (3.5-5.1); SODIUM 140 mmol/L (136-145); UREA NITROGEN 12 mg/dL (7-18); eGFR NON AFRICAN AMERICAN 80 mL/min (90-120)
[2017-08-02 16:19] LABS: APTT 26.6 SECONDS (22.8-39.4); INR 0.99 (0.85-1.17); PROTIME 12.7 SECONDS (11.6-15.0)
[~2017-08-03] VITALS: Ht 162.6 cm; Wt 79.0 kg
[2017-08-03] VITALS (12 sets, daily range): BP systolic 116–137; BP diastolic 67–78; BMI 30.6; BMI 29.9
--- NOTE | 2017-08-03 19:25 | NUR ---
PT RECEIVED TO [facility] VIA BED ACCOMPANIED PER HOSPITAL STAFF. PT AAOX4. SPEECH CLEAR PT CONNECTED TO STANDARD CVICU MONITORS SR NOTED. VSS. ORIENTATED TO ROOM. AND DAUGHTER BROUGHT BACK TO ROOM. NOTE EASY INTERACTION VERBALLY BETWEEN FAMILY MEMBERS. QUESTIONS ANSWERED AND UPDATE GIVEN. SECURITY WORD ESTABLISHED CONTACT INFORMATION FOR UNIT PROVIDED. BED IN LOW POSITION CALL LIGHT IN REACH PT INSTRUCTED ON ACTIVITY LIMITATIONS AND ADMISSION ASSESSMENT DONE. SEE FLOWSHEET. BONDED INCISION TO RIGHT SIDE OF NECK WNL
--- NOTE | 2017-08-03 21:00 | NUR ---
NO VISITORS AT THIS TIME. PT RESTING W/O COMPLAINT
--- NOTE | 2017-08-03 23:00 | NUR ---
SHIFT REASSESSMENT COMPLETED SEE FLOWSHEET. PT TOLERATING ICE CHIPS WELL NO N/V. PT STATES HE IS IN NO PAIN AT THIS TIME. INCISION SITE WNL
[2017-08-04] VITALS (10 sets, daily range): BP systolic 117–133; BP diastolic 62–81; Ht 162.6 cm; Wt 79.0 kg
--- NOTE | 2017-08-04 02:06 | NUR ---
PT UP TO BATHROOM WEARING SOFT CERVICAL COLLAR. VOIDING FREELY NOT MEASURED AT THIS TIME. CONTINENT OF LARGE SOFT BROWN STOOL. WHEN RETURNED TO BED C/O DISCOMFORT CAUSED FROM ACTIVITY. PO MEDS GIVEN CHARTED ON OCT NO SWALLOWING DIFFICULTY NOTED
--- NOTE | 2017-08-04 03:00 | NUR ---
PT UP TO BATHROOM TO VOID. GAIT STEADY. WEARING COLLAR WHEN OOB DENIES N/V
--- NOTE | 2017-08-04 05:00 | NUR ---
CALL RECEIVED FROM , SECURITY CODE VERIFIED. UPDATE GIVEN QUESTIONS ANSWERED. , KATARINA, STATED TO CONTACT PEARL VELAZQUEZ, FOR TRANSPORTATION WHEN DISCHARGED. STATES SHE IS ANTICIPATING DISCHARGE TODAY. PHONE # [phone]
--- NOTE | 2017-08-04 07:30 | NUR ---
SHIFT ASSESSMENT VIA FLOWSHEET, SEE FOR DETAILS. VSS. PT SITTING IN CHAIR AT BEDSIDE, SOFT COLLAR IN PLACE. PT VOICES NO ADDITIONAL NEEDS AT THIS TIME. CALL LIGHT WITHIN REACH.
--- NOTE | 2017-08-04 08:30 | NUR ---
ASSISTED PT TO RESTROOM, STEADY GAIT NOTED. VSS, SR ON CM.
--- NOTE | 2017-08-04 09:15 | NUR ---
SPOKE WITH PT'S STEPSON, ROXANNE SHAW, VIA PHONE. INFORMED OF PT'S PLANNED DISCHARGE TODAY. STATES HE WILL PICKUP THE PT TODAY, BUT HAS AN APPROX [address]OSPITAL.
--- NOTE | 2017-08-04 10:00 | NUR ---
PT DISCHARGE TEACHING PROVIDED, PT VERBALIZES UNDERSTANDING. PT GIVEN RX FOR NORCO ALONG WITH D/C PAPERWORK. PIV D/C'D WITH CATH TIP INTACT. PT STATES, "I'M JUST WAITING FOR MY RIDE."
--- NOTE | 2017-08-04 10:30 | NUR ---
PT TO FRONT ENTRANCE VIA WHEELCHAIR. ALL BELONGINGS WITH PT AT TIME OF D/C INCLUDING RX FOR NORCO.
--- NOTE | 2017-08-06 17:31 | OP ---
PATIENT NAME: LINETTE MONTANEZ MEDICAL RECORD: [id number] :55 [facility] ADMISSION DATE:08/03/17 SURGEON: URBAN GRUBER MD DATE OF OPERATION: 08/03/2017 PREOPERATIVE DIAGNOSIS: Spinal cord compression with myelopathy at C4-C5 and C5-C6 secondary to osteoarthritis. POSTOPERATIVE DIAGNOSIS: Spinal cord compression with myelopathy at C4-C5 and C5-C6 secondary to osteoarthritis. PROCEDURE: Anterior cervical diskectomy and fusion at C4-C5 and C5-C6 with separate anterior cervical plate and screws from [employer] VIP plate and Colonial interbody PEEK cages, bone stem cell [employer] allograft, removal of osteophytes, microscopic illumination. DESCRIPTION OF TECHNIQUE: After induction of general endotracheal anesthesia, the patient was positioned supine on the operating table. Neck was prepped and draped in usual sterile fashion. Fluoroscopic x-ray localized the C5 vertebral body. A transverse skin incision was carried out at this level. The platysma was divided with Bovie cautery. Using blunt and sharp dissection with Metzenbaum scissors, I proceeded in an avascular plane medial to the carotid sheath. The C4-C5 and C5-C6 interspaces were identified with fluoroscopic x-ray and a marker. A self-retaining retractor was placed deep to the longus colli muscles. O'Brien distracting pins were placed at C4, C5 and C6. Disk space was incised at each level with 11 blade. Disk material was removed with pituitary rongeurs and curettes. Osteophytes were drilled away posteriorly with Midas-Dominic drill. The posterior longitudinal ligament was removed at each level with the Cloward rongeurs. Following this, the dura was decompressed well at C4-C5 and C5-C6. PEEK interbody cages 7 mm were placed in each disk space separately. Prior to this, I filled with bone stem cell allograft. Next, a free standing anterior cervical plate, VIP plate from [employer] was placed to span the bodies of C4, C5, C6, and 18 mm screws were placed through the plate. Locking cams were tightened down over the screw heads. Good position of the hardware was confirmed with fluoroscopic x-ray. Meticulous hemostasis was maintained throughout the wound. The wound was irrigated with copious amounts of Ancef irrigant solution. The platysma and subdermal layer were closed with interrupted 3-0 Vicryl sutures. The skin was reapproximated with Steri-Strips and benzoin. A sterile dressing was applied to the wound. The patient was awakened in good condition and taken to recovery. All counts were reported as correct. Estimated blood loss was minimal. TRANSINT:[id number] Voice Confirmation ID: [id number] DOCUMENT ID: [id number] URBAN GRUBER MD at 1731 CC: [id number] DICTATION DATE: 08/05/17 0937 CLARITY DEVELOPER: 08/05/17 1419 DIS IN 08/04/17 [address] [place] [address]
--- NOTE | 2017-10-01 15:42 | DS ---
PATIENT:LINETTE MONTANEZ :55 MEDICAL RECORD: [id number] DISCHARGE SUMMARY ADMISSION DATE: 08/03/17 DISCHARGE DATE: 08/04/17 ADMISSION DIAGNOSIS: Spinal cord compression secondary to osteophyte formation at C4-C5 and C5-C6. DISCHARGE DIAGNOSES: Spinal cord compression secondary to osteophyte formation at C4-C5 and C5-C6 status post anterior cervical discectomy and fusion with resection of osteophytes at C4-C5 and C5-C6. HOSPITAL COURSE: The patient was admitted as an outpatient for the anterior cervical discectomy and fusion. He tolerated the procedure well, was observed overnight in the ICU and then discharged home the following day, doing well with good preoperative symptom relief. DISCHARGE MEDICATIONS: Garland 10, 1-2 every 3 hours p.r.n. pain. FOLLOWUP: He is to follow with Dr. Kulkarni in 2 weeks with a lateral C-spine x-ray. DIET: Regular. TRANSINT:[id number] Voice Confirmation ID: [id number] DOCUMENT ID: [id number] URBAN KULKARNI MD at 1542 CC: [id number] DICTATION DATE: 09/29/17 1144 TRANSPORTATION COORDINATOR: 09/29/17 2343 DIS IN 08/04/17 [id number] [place] [address]
== END 2017-08-04 10:30 | disposition home or self-care (01) | DRG 473 ==
LOC: D.SDCHOLD 06:18 → D.CVICU 06:18 → D.SDCHOLD 14:15 → D.CVICU 19:11
PROVIDERS: Anesthesiology; ADMIT Neurological Surgery
PROC: 0RB30ZZ Excision of Cervical Vertebral Disc, Open Approach (ICD-10-PCS; 2017-08-03)
PROC: 0RG20A0 Fusion of 2 or more Cervical Vertebral Joints with Interbody Fusion Device, Anterior Approach, Anterior Column, Open Approach (ICD-10-PCS; principal; 2017-08-03 14:15)
PROC: 0RG20K0 Fusion of 2 or more Cervical Vertebral Joints with Nonautologous Tissue Substitute, Anterior Approach, Anterior Column, Open Approach (ICD-10-PCS; 2017-08-03 14:15)
DX: M47.12 Other spondylosis with myelopathy, cervical region (principal)

== ENCOUNTER → 2017-09-13 13:18 | Outpatient (CLI) | payer MEDICARE ==
[2017-08-04 09:30] VITALS: BMI 29.9
== END | disposition home or self-care (01) ==
LOC: D.MRI 13:18
DX: M54.12 Radiculopathy, cervical region (principal); M54.2 Cervicalgia

== ENCOUNTER 2017-09-15 19:20 | Emergency (ER) | payer MEDICARE ==
[2017-08-04 09:30] VITALS: BMI 29.9
== END 2017-09-15 20:37 | disposition home or self-care (01) ==
LOC: D.ER 19:20
DX: M54.12 Radiculopathy, cervical region (principal); Z85.01 Personal history of malignant neoplasm of esophagus; I10 Essential (primary) hypertension; F17.200 Nicotine dependence, unspecified, uncomplicated

== ENCOUNTER → 2017-10-12 09:13 | Outpatient (CLI) | payer MEDICARE ==
[2017-08-04 09:30] VITALS: BMI 29.9
== END | disposition home or self-care (01) ==
LOC: D.MRI 09:13
DX: M25.511 Pain in right shoulder (principal); M75.121 Complete rotator cuff tear or rupture of right shoulder, not specified as traumatic

== ENCOUNTER 2017-10-19 11:27 | Day surgery (SDC) | payer MEDICARE ==
--- NOTE | ~2017-10-19 | OP ---
PATIENT NAME: LINETTE GUILLEN MEDICAL RECORD: [id number] :55 [facility]ATION:[facility] AD[facility]ION DATE: SURGEON: JOHN TORRES DO DATE OF OPERATION: 10/19/2017 PROCEDURE PERFORMED: Right shoulder arthroscopy with subacromial decompression, distal clavicle excision, biceps tenodesis, and rotator cuff debridement. PREOPERATIVE DIAGNOSES: Right shoulder subacromial impingement and acromioclavicular joint arthritis with a large labral tear with paralabral cyst, and partial rotator cuff tear. POSTOPERATIVE DIAGNOSES: Right shoulder subacromial impingement and acromioclavicular joint arthritis with a large labral tear with paralabral cyst, and rotator cuff is torn as the subscapularis partial tear. SURGEON: John Torres DO ESTIMATED BLOOD LOSS: Minimal. COMPLICATIONS: None. INDICATIONS: Mr. Guillen is a 62-year-old male who presented to my office with right shoulder pain for quite some time. He has lost motion and strength in it. He got an MRI, which demonstrated a large paralabral cyst, but no real full thickness tear. It did show a possible partial tear of his rotator cuff, possible AC joint arthritis and some subacromial impingement picture. The teres minor had fatty atrophy in it, but the infraspinatus and supraspinatus were intact. The patient was tired of dealing with the pain. I offered him injection. He stated he did not want it and he wants them done surgically and we consented him for surgery. He is aware of the risks and benefits of procedure including need for further surgery. He was advised to stop smoking and due to the fact he is already on pain medicine, it will be hard to control his pain. He was aware of that and consented to the procedure. DESCRIPTION OF PROCEDURE: The patient received a block in the preoperative area and he was taken to the operative suite and was laid in the left lateral decubitus position with the right arm up and the axillary roll was placed under the axilla in the left and the beanbag was placed around the patient. He then had an LMA placed and sedated. Prior to that, he was given 900 mg clindamycin preoperatively. A timeout was performed and everyone was in agreement with side, site, and patient. The procedure then began once the timeout was performed and the posterior portal was established with an 18-gauge needle and 60 mL of normal saline were used to insufflate the shoulder joint itself. Once this was inflated, the posterior portal was established with an 11-blade scalpel and the trocar was entered into the shoulder joint. Shoulder joint was then entered with the camera. A large labral tear was seen, it was very degenerative in nature and then the anterior portal was established with 18-gauge spinal needle and then an 11-blade scalpel and then trocar was entered and through that the subscapularis tendon was probed and seen to have a partial tear. This was debrided. The supraspinatus, infraspinatus were also probed and inspected and no tears were seen on the articular side of those tendons. The burner was then entered into the shoulder joint itself and the biceps was tenotomized. After the biceps was tenotomized, the shoulder was inspected. He did have some chondromalacia of the glenohumeral joint. Then, the subacromial space was OPERATIVE REPORT [id number] LINETTE GUILLEN entered with the trocar and subacromial decompression and distal clavicle excision was done. At that time, I did have a good amount of bursa on top of the rotator cuff and this was debrided with the shaver. The bursal side of the cuff was inspected thoroughly and no tears were seen or noted. After the distal clavicle excision and subacromial decompression, then the anterior lateral part of the acromion was removed due to a large spur. This was all done through the lateral portal that was established after entering subacromial space. The shoulder joint itself was entered again at this time with the camera and then a probe was used to probe back through the labral tear to decompress the cyst. This was opened up and the spine of the scapula was pressed on to decompress the cyst and some joint fluid had rushed out into the shoulder joint, decompressing the cyst. Once this was done, the camera was removed and the attention was drawn to the anterior humerus at the he bicep tenodesis site. A small incision was made just distal to the pec insertion on the humerus and careful dissection was made down to the bicep tendon. This was removed through the incision and then whipstitched with a suture and placed on a button and then a unicortical hole was made in the humerus itself and the button that had been tied to the bicep tendon was pushed down into the hole and flipped and then the bicep tendon was cinched down to it and then a free needle was used to go through the bicep tendon again and this was tied down. The excess tendon and suture was cut at that time with scissors. The wound was then thoroughly irrigated and closed with 2-0 Vicryl in an inverted interrupted fashion, 4-0 Monocryl ran on the skin, and then the portal sites anterior, posterior, and lateral were all closed with a single inverted interrupted stitch and then a Telfa and Tegaderm were placed on the sites after Dermabond had been placed on the skin. The patient was awakened, put in sling, and taken to recovery in stable condition. TRANSINT:[id number] Voice Confirmation ID: [id number] DOCUMENT ID: [id number] JOHN TORRES DO at 1401 CC: [id number] DICTATION DATE: 10/19/17 1550 FINISH REPAIRER: 10/19/17 1800 [facility] 10/19/17 [facility] [address] [place] [address]
[~2017-10-19 11:27] MED LIST changes: +PERCOCET 10/3251 TA1 PO
[2017-10-19 12:28] LABS: HEMATOCRIT 41.4 % (42.0-54.0); HEMOGLOBIN 14.1 g/dL (13.5-17.5); MCH 32.9 pg (26.0-34.0); MCHC 34.1 g/dL (31.0-37.0); MCV 96.7 fL (80.0-100.0); MEAN PLATELET VOLUME 10.1 fL (7.4-10.4); RBC 4.28 10x6/uL (4.20-6.10); WBC 4.9 10x3/uL (4.8-10.8)
[2017-10-19 13:19] VITALS: BP 140/86; BMI 31.0
[2017-10-19] MEDS ORDERED: PERCOCET 10/3251 TA1 PO (15:43)
== END 2017-10-19 18:20 | disposition home or self-care (01) ==
LOC: D.OPS 11:27 → D.PAN 14:00 → D.OPS 18:20
PROVIDERS: Anesthesiology
DX: M75.41 Impingement syndrome of right shoulder (principal); M13.811 Other specified arthritis, right shoulder; M75.111 Incomplete rotator cuff tear or rupture of right shoulder, not specified as traumatic; S43.431A Superior glenoid labrum lesion of right shoulder, initial encounter; X58.XXXA Exposure to other specified factors, initial encounter

== ENCOUNTER 2017-11-20 18:50 | Emergency (ER) | payer MEDICARE | END 2017-11-20 20:34 | disposition home or self-care (01) | LOC: D.ER 18:50 | DX: M54.2 Cervicalgia (principal); W19.XXXA Unspecified fall, initial encounter; Y93.89 Activity, other specified; Y92.019 Unspecified place in single-family (private) house as the place of occurrence of the external cause; F17.200 Nicotine dependence, unspecified, uncomplicated; I10 Essential (primary) hypertension ==

== ENCOUNTER 2018-04-12 21:11 | Emergency (ER) | payer MEDICARE ==
[~2018-04-12] VITALS: Ht 160 cm; Wt 77.7 kg
[2018-04-12 21:21] VITALS: Ht 160 cm; Wt 77.7 kg
[2018-04-12] MEDS ORDERED: AMBIEN10 MG PO (21:22)
[2018-04-12] MEDS ORDERED: LEXAPRO10 MG (21:23)
[2018-04-12 22:01] LABS: EOSINOPHILS 3.6 % (0-7); HEMATOCRIT 41.4 % (42.0-54.0); HEMOGLOBIN 14.4 g/dL (13.5-17.5); IMMATURE GRANULOCYTES 0.2 % (0-5); LYMPHOCYTES 29.6 % (15-50); MCH 33.6 pg (26.0-34.0); MCHC 34.8 g/dL (31.0-37.0); MCV 96.7 fL (80.0-100.0); MEAN PLATELET VOLUME 10.6 fL (7.4-10.4); MONOCYTES 8.3 % (2-11); NEUTROPHILS 57.3 % (40-80); PLATELET COUNT 109 10x3/uL (130-400); RBC 4.28 10x6/uL (4.20-6.10); RDW 13.6 % (11.5-14.5)
[2018-04-12 22:26] LABS: ALBUMIN 3.7 g/dL (3.4-5.0); ALKALINE PHOSPHATASE 97 U/L (46-116); ALT (SGPT) 50 U/L (10-68); BILIRUBIN - TOTAL 0.42 mg/dL (0.2-1.3); CALC OSMOLALITY 274 mosm/kg (275-300); CALCIUM 8.7 mg/dL (8.5-10.1); CARBON DIOXIDE 29.3 mmol/L (21.0-32.0); CHLORIDE - SERUM 105 mmol/L (98-107); GLUCOSE 107 mg/dL (74-106); POTASSIUM - SERUM 3.7 mmol/L (3.5-5.1); PROTEIN - SERUM 7.3 g/dL (6.4-8.2); SODIUM 138 mmol/L (136-145); UREA NITROGEN 11 mg/dL (7-18); eGFR NON AFRICAN AMERICAN 80 mL/min (90-120)
[2018-04-12 22:26] LABS: APPEARANCE CLEAR (CLEAR); COLOR YELLOW (YELLOW)
[2018-04-12 22:27] LABS: BILIRUBIN NEGATIVE (NEGATIVE); GLUCOSE NEGATIVE (NEGATIVE); KETONE NEGATIVE (NEGATIVE); NITRITE NEGATIVE (NEGATIVE); PROTEIN NEGATIVE (NEGATIVE); UROBILINOGEN NORMAL (NORMAL)
[2018-04-12 22:28] LABS: APTT 28.2 SECONDS (22.8-39.4); INR 1.07 (0.85-1.17); PROTIME 13.5 SECONDS (11.6-15.0)
[2018-04-12 22:30] LABS: D-DIMER-QUANTITATIVE 1.88 ug/mLFEU (0.20-0.54)
[2018-04-12 22:36] LABS: CKMB 4.8 U/L (0.0-3.6); CREATINE KINASE 287 UL (21-232); TROPONIN-I < 0.017 ng/mL (0.000-0.060)
[2018-04-13] MEDS ORDERED: MEDROL DOSE PACK4 MG PO (02:52)
[2018-04-13] MEDS ORDERED: CYCLOBENZAPRINE10 MG PO (02:52)
[2018-04-13 03:04] VITALS: BP 129/76
[2018-05-10] MEDS ORDERED: HYDROCODON-ACE1 EAC7 PO (16:28)
== END 2018-04-13 03:05 | disposition home or self-care (01) ==
LOC: D.ER 21:11
PROVIDERS: Family Medicine
DX: M62.838 Other muscle spasm (principal); R42 Dizziness and giddiness; R07.9 Chest pain, unspecified; R20.2 Paresthesia of skin; J44.9 Chronic obstructive pulmonary disease, unspecified; Z85.01 Personal history of malignant neoplasm of esophagus; F17.200 Nicotine dependence, unspecified, uncomplicated

== ENCOUNTER 2018-04-16 16:18 | Emergency (ER) | payer MEDICARE ==
[~2018-04-16] VITALS: Ht 160 cm; Wt 77.7 kg
[~2018-04-16 16:18] MED LIST changes: +AMBIEN10 MG PO; +CYCLOBENZAPRINE10 MG PO; +LEXAPRO10 MG; +MEDROL DOSE PACK4 MG PO
[2018-04-16 16:23] VITALS: Ht 160 cm; Wt 77.7 kg
[2018-04-16] MEDS ORDERED: KEFLEX500 MG PO (17:20)
[2018-04-16 18:50] VITALS: BP 143/84
[2018-05-10] MEDS ORDERED: HYDROCODON-ACE1 EAC7 PO (16:28)
== END 2018-04-16 18:51 | disposition home or self-care (01) ==
LOC: D.ER 16:18
DX: S61.211A Laceration without foreign body of left index finger without damage to nail, initial encounter (principal); W26.0XXA Contact with knife, initial encounter; Y93.89 Activity, other specified; Y92.019 Unspecified place in single-family (private) house as the place of occurrence of the external cause; G40.909 Epilepsy, unspecified, not intractable, without status epilepticus; F17.200 Nicotine dependence, unspecified, uncomplicated

== ENCOUNTER → 2018-05-10 | Emergency (ER) | payer MEDICARE ==
[~2018-05-10] VITALS: Ht 160 cm; Wt 76.8 kg
[~2018-05-10] MED LIST changes: +HYDROCODON-ACE1 EAC7 PO; +KEFLEX500 MG PO
[2018-05-10 13:33] VITALS: Ht 160 cm; Wt 76.8 kg
[2018-05-10 16:36] VITALS: BP 142/75
== END | disposition home or self-care (01) ==
LOC: D.ER 13:27
DX: S62.616A Displaced fracture of proximal phalanx of right little finger, initial encounter for closed fracture (principal); W18.30XA Fall on same level, unspecified, initial encounter; Y93.89 Activity, other specified; Y92.019 Unspecified place in single-family (private) house as the place of occurrence of the external cause; N42.9 Disorder of prostate, unspecified; E07.9 Disorder of thyroid, unspecified

== ENCOUNTER 2018-05-20 07:25 | Day surgery (SDC) | payer MEDICARE ==
[2018-05-19 11:58] LABS: BASOPHILS 0.9 % (0-2); EOSINOPHILS 3.2 % (0-7); HEMATOCRIT 42.3 % (42.0-54.0); HEMOGLOBIN 14.7 g/dL (13.5-17.5); IMMATURE GRANULOCYTES 0.3 % (0-5); LYMPHOCYTES 28.3 % (15-50); MCHC 34.8 g/dL (31.0-37.0); MCV 94.8 fL (80.0-100.0); MEAN PLATELET VOLUME 10.3 fL (7.4-10.4); MONOCYTES 8.6 % (2-11); NEUTROPHILS 58.7 % (40-80); RBC 4.46 10x6/uL (4.20-6.10); RDW 13.1 % (11.5-14.5); WBC 3.4 10x3/uL (4.8-10.8)
[2018-05-19 12:12] LABS: PLATELET COUNT 87 10x3/uL (130-400)
[2018-05-19 12:18] LABS: CALC OSMOLALITY 281 mosm/kg (275-300); CALCIUM 8.7 mg/dL (8.5-10.1); CARBON DIOXIDE 28.3 mmol/L (21.0-32.0); CHLORIDE - SERUM 105 mmol/L (98-107); CREATININE - SERUM 0.8 mg/dL (0.6-1.3); POTASSIUM - SERUM 3.7 mmol/L (3.5-5.1); SODIUM 139 mmol/L (136-145); UREA NITROGEN 13 mg/dL (7-18); eGFR NON AFRICAN AMERICAN > 90 mL/min (90-120)
[2018-05-19 12:20] LABS: GLUCOSE 171 mg/dL (74-106)
[2018-05-19 12:21] LABS: APTT 25.2 SECONDS (22.8-39.4)
[2018-05-19 12:22] LABS: INR 0.98 (0.85-1.17); PROTIME 12.6 SECONDS (11.6-15.0)
[2018-05-19 13:03] LABS: PLATELET ESTIMATE DECREASED
[~2018-05-20] VITALS: Ht 160 cm; Wt 79.4 kg
--- NOTE | ~2018-05-20 | OP ---
PATIENT NAME: LINETTE GUILLEN MEDICAL RECORD: [id number] :55 LOCATION:[facility] ADMISSION DATE: SURGEON: JOHN TORRES DO DATE OF OPERATION: 05/20/2018 PROCEDURE PERFORMED: Right small finger proximal phalanx closed reduction percutaneous pinning. PREOPERATIVE DIAGNOSIS: Closed right small finger proximal phalanx displaced fracture. POSTOPERATIVE DIAGNOSIS: Closed right small finger proximal phalanx displaced fracture. INDICATIONS: Mr. Guillen is a 63-year-old right hand dominant male who fell and fractured his right small finger proximal phalanx last week. I saw him in the office and a reduction was attempted in the ER; however, it was not successful due to the pull of the tendons. The patient was informed that he is just going to need surgery if he wanted a proper alignment of his finger. He was also informed that he may have a rotational deformity following this, that he would have pins sticking for approximately 3 to 4 weeks and then it will be pulled in the office. I informed him of the risks of infection, bleeding, and need for further surgery. He is okay with that and consented to the procedure. SURGEON: John Torres DO DESCRIPTION OF PROCEDURE: The patient was taken to the operative suite, laid in supine position, given 2 grams of Ancef. A timeout was performed. Everyone was in agreeance with the correct side, site, patient and procedure. The right upper extremity was prepped and draped in sterile fashion. A reduction maneuver was made and then a C-arm was brought in, confirming reduction. Then, a single K-wire was placed first on the ulnar side, more distal to the fracture site and ran down the shaft of the proximal phalanx into the more proximal fracture and a crossing pin was put from the radial side in like manner. Once a good reduction and good pin fixation confirmed on AP and lateral x-ray, the pins were bent and cut and these pins were ran from distal to proximal. The finger was blocked with 5 mL of 0.25% Marcaine with epinephrine. A digital block was done. The pins were covered with Adaptic, 4 x 4s were wrapped over him and then Webril and then an Alumafoam splint was placed on the small finger and overwrapped with cast padding and Marques wrap to secure it in place. Then, he was awakened and taken to recovery in stable condition. BLOOD LOSS: Minimal. COMPLICATIONS: None. TRANSINT:[id number] Voice Confirmation ID: [id number] DOCUMENT ID: [id number] OPERATIVE REPORT [id number] LINETTE GUILLEN MICHAEL D, DO at 1254 CC: [id number] DICTATION DATE: 05/20/18 1016 LABORER LANDSCAPE: 05/20/18 1035 [facility] 05/20/[address] [address]
[2018-05-20 07:45] VITALS: BP 137/73; Ht 160 cm; Wt 79.4 kg
[2018-05-20] MEDS ORDERED: NORCO 10-325 TA1 TAB PO (10:09)
[2018-05-20] MEDS ORDERED: DURICEF500 MG PO (10:09)
== END 2018-05-20 12:05 | disposition home or self-care (01) ==
LOC: D.OPS 07:25 → D.PAN 10:30 → D.OPS 12:05 → D.PAN 12:45
PROVIDERS: Anesthesiology
DX: S62.616A Displaced fracture of proximal phalanx of right little finger, initial encounter for closed fracture (principal); W19.XXXA Unspecified fall, initial encounter; Z01.812 Encounter for preprocedural laboratory examination

== ENCOUNTER → 2018-07-04 13:05 | Outpatient (CLI) | payer MEDICARE ==
[2018-05-20 07:45] VITALS: BMI 31.0
[~2018-07-04 13:05] MED LIST changes: +DURICEF500 MG PO; +IMODIUM2 MG PO; +NORCO 10-325 TA1 TAB PO; +ZOFRAN ODT4 MG/UDTAB PO
== END | disposition home or self-care (01) ==
LOC: D.CT 13:05
DX: R10.84 Generalized abdominal pain (principal)

== ENCOUNTER 2018-07-15 12:50 | Emergency (ER) | payer MEDICARE ==
[~2018-07-15] VITALS: Ht 160 cm; Wt 77.3 kg
[~2018-07-15 12:50] MED LIST changes: -IMODIUM2 MG PO; -ZOFRAN ODT4 MG/UDTAB PO
[2018-07-15 13:09] VITALS: Ht 160 cm; Wt 77.3 kg
[2018-07-15 14:08] LABS: BASOPHILS 0.8 % (0-2); EOSINOPHILS 2.2 % (0-7); HEMATOCRIT 44.6 % (42.0-54.0); HEMOGLOBIN 15.5 g/dL (13.5-17.5); LYMPHOCYTES 25.2 % (15-50); MCHC 34.8 g/dL (31.0-37.0); MCV 94.9 fL (80.0-100.0); MEAN PLATELET VOLUME 10.2 fL (7.4-10.4); NEUTROPHILS 59.8 % (40-80); RDW 13.5 % (11.5-14.5); WBC 4.9 10x3/uL (4.8-10.8)
[2018-07-15 14:14] LABS: PLATELET COUNT 111 10x3/uL (130-400)
[2018-07-15 14:25] LABS: APPEARANCE CLEAR (CLEAR); BILIRUBIN NEGATIVE (NEGATIVE); COLOR YELLOW (YELLOW); GLUCOSE NEGATIVE (NEGATIVE); KETONE NEGATIVE (NEGATIVE); NITRITE NEGATIVE (NEGATIVE); PROTEIN NEGATIVE (NEGATIVE); SPECIFIC GRAVITY 1.005 (1.005-1.020); UROBILINOGEN NORMAL (NORMAL)
[2018-07-15 14:29] LABS: ALBUMIN 3.8 g/dL (3.4-5.0); ALKALINE PHOSPHATASE 105 U/L (46-116); ALT (SGPT) 65 U/L (10-68); BILIRUBIN - TOTAL 0.91 mg/dL (0.2-1.3); CALC OSMOLALITY 278 mosm/kg (275-300); CALCIUM 9.4 mg/dL (8.5-10.1); CHLORIDE - SERUM 104 mmol/L (98-107); CREATININE - SERUM 0.7 mg/dL (0.6-1.3); POTASSIUM - SERUM 3.9 mmol/L (3.5-5.1); PROTEIN - SERUM 7.6 g/dL (6.4-8.2); SODIUM 140 mmol/L (136-145); UREA NITROGEN 11 mg/dL (7-18); eGFR NON AFRICAN AMERICAN > 90 mL/min (90-120)
[2018-07-15 14:30] LABS: GLUCOSE 121 mg/dL (74-106)
[2018-07-15 14:33] LABS: AMYLASE - SERUM 31 U/L (25-115); LIPASE 38 U/L (73-393)
[2018-07-15] MEDS ORDERED: ZOFRAN ODT4 MG/UDTAB PO (16:14)
[2018-07-15] MEDS ORDERED: IMODIUM2 MG PO (16:14)
[2018-07-15 17:18] VITALS: BP 135/78
== END 2018-07-15 17:19 | disposition home or self-care (01) ==
LOC: D.ER 12:50
PROVIDERS: Emergency Medicine
DX: A08.4 Viral intestinal infection, unspecified (principal); R11.2 Nausea with vomiting, unspecified; Z86.718 Personal history of other venous thrombosis and embolism; J44.9 Chronic obstructive pulmonary disease, unspecified; K21.9 Gastro-esophageal reflux disease without esophagitis; F17.200 Nicotine dependence, unspecified, uncomplicated

== ENCOUNTER → 2018-08-08 10:17 | Outpatient (CLI) | payer MEDICARE ==
[2018-07-15 13:09] VITALS: BMI 30.1
[~2018-08-08 10:17] MED LIST changes: +IMODIUM2 MG PO; +ZOFRAN ODT4 MG/UDTAB PO
== END | disposition home or self-care (01) ==
LOC: D.CT 10:17
DX: R10.9 Unspecified abdominal pain (principal)

== ENCOUNTER 2018-08-23 15:12 | Emergency (ER) | payer MEDICARE ==
[~2018-08-23] VITALS: Ht 160 cm; Wt 80.0 kg
[2018-08-23 15:25] VITALS: Ht 160 cm; Wt 80.0 kg
[2018-08-23 15:45] LABS: EOSINOPHILS 1.6 % (0-7); HEMATOCRIT 45.5 % (42.0-54.0); HEMOGLOBIN 15.8 g/dL (13.5-17.5); LYMPHOCYTES 23.4 % (15-50); MCH 32.3 pg (26.0-34.0); MCHC 34.7 g/dL (31.0-37.0); MEAN PLATELET VOLUME 9.9 fL (7.4-10.4); MONOCYTES 18.8 % (2-11); NEUTROPHILS 55.2 % (40-80); PLATELET COUNT 103 10x3/uL (130-400); RBC 4.89 10x6/uL (4.20-6.10); RDW 13.2 % (11.5-14.5); WBC 3.1 10x3/uL (4.8-10.8)
[2018-08-23 16:01] LABS: ALBUMIN 3.6 g/dL (3.4-5.0); ALKALINE PHOSPHATASE 115 U/L (46-116); ALT (SGPT) 56 U/L (10-68); BILIRUBIN - TOTAL 0.75 mg/dL (0.2-1.3); CALC OSMOLALITY 277 mosm/kg (275-300); CALCIUM 9.4 mg/dL (8.5-10.1); CARBON DIOXIDE 28.4 mmol/L (21.0-32.0); CHLORIDE - SERUM 101 mmol/L (98-107); CREATININE - SERUM 0.8 mg/dL (0.6-1.3); GLUCOSE 117 mg/dL (74-106); POTASSIUM - SERUM 3.7 mmol/L (3.5-5.1); PROTEIN - SERUM 7.7 g/dL (6.4-8.2); SODIUM 139 mmol/L (136-145); UREA NITROGEN 10 mg/dL (7-18); eGFR NON AFRICAN AMERICAN > 90 mL/min (90-120)
[2018-08-23 16:02] LABS: AMYLASE - SERUM 29 U/L (25-115); TROPONIN-I < 0.017 ng/mL (0.000-0.060)
[2018-08-23 16:16] LABS: LIPASE 39 U/L (73-393)
[2018-08-23 18:22] LABS: APPEARANCE CLEAR (CLEAR); BILIRUBIN NEGATIVE (NEGATIVE); COLOR YELLOW (YELLOW); GLUCOSE NEGATIVE (NEGATIVE); KETONE NEGATIVE (NEGATIVE); NITRITE NEGATIVE (NEGATIVE); PROTEIN NEGATIVE (NEGATIVE); UROBILINOGEN NORMAL (NORMAL)
[2018-08-23] MEDS ORDERED: PHENERGAN25 M1 PO (18:33)
[2018-08-23 19:58] VITALS: BP 143/78
== END 2018-08-23 19:58 | disposition home or self-care (01) ==
LOC: D.ER 15:12
PROVIDERS: Emergency Medicine
DX: A08.4 Viral intestinal infection, unspecified (principal); R11.2 Nausea with vomiting, unspecified

== ENCOUNTER 2018-11-01 10:34 | Emergency (ER) | payer MEDICARE ==
[~2018-11-01] VITALS: Ht 160 cm; Wt 80.0 kg
[~2018-11-01 10:34] MED LIST changes: +PHENERGAN25 M1 PO
[2018-11-01 10:45] VITALS: BP 147/96; Ht 160 cm; Wt 80.0 kg
[2018-11-01] MEDS ORDERED: BACLOFEN20 M1 PO (11:49)
[2018-11-01] MEDS ORDERED: VOLTAREN75 MG PO (11:49)
== END 2018-11-01 12:37 | disposition home or self-care (01) ==
LOC: D.ER 10:34
DX: S16.1XXA Strain of muscle, fascia and tendon at neck level, initial encounter (principal); X58.XXXA Exposure to other specified factors, initial encounter; Y93.89 Activity, other specified; Y92.019 Unspecified place in single-family (private) house as the place of occurrence of the external cause; M25.519 Pain in unspecified shoulder

== ENCOUNTER → 2019-01-17 13:30 | Outpatient (CLI) | payer MEDICARE ==
[2018-11-01 10:45] VITALS: BMI 31.2
[~2019-01-17 13:30] MED LIST changes: +BACLOFEN20 M1 PO; +VOLTAREN75 MG PO
== END | disposition home or self-care (01) ==
LOC: D.CT 13:30
PROVIDERS: ATTEND Internal Medicine Gastroenterology
DX: R10.9 Unspecified abdominal pain (principal); Z85.01 Personal history of malignant neoplasm of esophagus

== ENCOUNTER → 2019-02-06 07:24 | Outpatient (CLI) | payer MEDICARE ==
[2018-11-01 10:45] VITALS: BMI 31.2
== END | disposition home or self-care (01) ==
LOC: D.US 07:24
PROVIDERS: ATTEND Internal Medicine Hematology & Oncology
DX: D69.49 Other primary thrombocytopenia (principal)

== ENCOUNTER 2020-04-06 16:17 | Emergency (ER) | payer MEDICARE ==
[~2020-04-06] VITALS: Ht 160 cm; Wt 80.0 kg
[~2020-04-06 16:17] MED LIST changes: +COZAAR50 MG; +LIPITOR20 MG PO; +PEPCID40 MG PO; +SYMBICORT 16010.2 GM
[2020-04-06 16:29] VITALS: Ht 160 cm; Wt 80.0 kg
[2020-04-06 17:14] LABS: BASOPHILS 0.2 % (0-2); EOSINOPHILS 0.6 % (0-7); HEMOGLOBIN 14.9 g/dL (13.5-17.5); IMMATURE GRANULOCYTES 0.2 % (0-5); LYMPHOCYTES 15.2 % (15-50); MCHC 33.9 g/dL (31.0-37.0); MCV 91.7 fL (80.0-100.0); MEAN PLATELET VOLUME 9.3 fL (7.4-10.4); MONOCYTES 7.8 % (2-11); PLATELET COUNT 126 10x3/uL (130-400); RDW 13.6 % (11.5-14.5); WBC 8.6 10x3/uL (4.8-10.8)
[2020-04-06 17:27] LABS: CALCIUM 8.9 mg/dL (8.5-10.1); CREATININE - SERUM 1.2 mg/dL (0.6-1.3); POTASSIUM - SERUM 3.8 mmol/L (3.5-5.1)
[2020-04-06 17:33] LABS: ALBUMIN 3.7 g/dL (3.4-5.0); BILIRUBIN - TOTAL 1.08 mg/dL (0.2-1.3); PROTEIN - SERUM 7.5 g/dL (6.4-8.2)
[2020-04-06 17:38] LABS: ANION GAP 11.8 mmol/L (8-16)
[2020-04-06 19:31] LABS: BILIRUBIN NEGATIVE (NEGATIVE); GLUCOSE NEGATIVE (NEGATIVE); KETONE NEGATIVE (NEGATIVE); NITRITE NEGATIVE (NEGATIVE); UROBILINOGEN NORMAL (NORMAL)
[2020-04-06 20:29] LABS: CKMB 3.7 U/L (0.0-3.6); CREATINE KINASE 89 UL (21-232)
[2020-04-06 20:30] LABS: TROPONIN-I 0.016 ng/mL (0.000-0.060)
[2020-04-06] MEDS ORDERED: PROTONIX40 MG PO (22:25)
[2020-04-06] MEDS ORDERED: ZOFRAN ODT4 MG/UDTAB PO (22:25)
[2020-04-06 23:16] VITALS: BP 132/85
== END 2020-04-06 23:18 | disposition home or self-care (01) ==
LOC: D.ER 16:17
PROVIDERS: Family Medicine
DX: R10.9 Unspecified abdominal pain (principal); I10 Essential (primary) hypertension; J44.9 Chronic obstructive pulmonary disease, unspecified; K21.9 Gastro-esophageal reflux disease without esophagitis; Z85.01 Personal history of malignant neoplasm of esophagus